=== PATIENT | male | born 1980 | race Caucasian/White ===

== ENCOUNTER 2017-06-14 22:42 | Emergency (ER) | payer OTHER ==
[2017-06-15] MEDS: HYDROCODONE/APAP (5/325) TAB PO (03:30)
== END 2017-06-15 03:40 | disposition home or self-care (01) ==
LOC: FTE 22:42
DX: B34.9 Viral infection, unspecified (principal); J01.90 Acute sinusitis, unspecified; F17.210 Nicotine dependence, cigarettes, uncomplicated
CPT/HCPCS: 87400; 87880; 99283